=== PATIENT | female | born 1975 | race Caucasian/White ===

== ENCOUNTER 2017-05-08 20:53 | Emergency (ER) | payer OTHER ==
[~2017-05-08 20:53] MED LIST: Z.0.NO CURRENT MEDS
--- NOTE | 2017-05-08 21:55 | PD ---
HPI Chief Complaint: Psychiatric Symptoms Time Seen by Provider: 21:35 Travel History International Travel<30 days: No Contact w/Intl Traveler<30days: No Traveled to known affect area: No History of Present Illness HPI 41-year-old white female presents to emergency department under Vinson act by PD. The patient had been drinking earlier this evening with her significant other. They had gotten into an argument. The patient states that she had gone to sleep and was awoken by PD. According to her significant other she had made suicidal statements. The patient denies this. She states that she was merely drinking alcohol. She denies any drugs. She states that her significant other smokes marijuana and does methamphetamine. He had gotten into a fight because he has not been working. She claims that she has a meeting set up with her mother who is flying in the town in the morning. She states that she was adopted this is a first time she will be seeing her grandmother. She states that she has no intention on hurting herself or hurting anyone. She feels comfortable like to go home. PFS Past Medical History Arthritis: No Asthma: No Autoimmune Disease: No Blood Disorders: No Anxiety: Yes Depression: Yes Heart Rhythm Problems: No Cancer: No Cardiovascular Problems: No High Cholesterol: No Chemotherapy: No Chest Pain: No Congestive Heart Failure: No COPD: No Cerebrovascular Accident: No Diabetes: No Diminished Hearing: No Endocrine: No Gastrointestinal Disorders: No GERD: No Glaucoma: No Genitourinary: Yes ("BLADDER SURGERY") Headaches: No Hepatitis: No Hiatal Hernia: No Hypertension: No Immune Disorder: No Implanted Vascular Access Dvce: No Kidney Stones: No Musculoskeletal: No Neurologic: No Psychiatric: Yes Reproductive: No Respiratory: No Immunizations Current: Yes Migraines: No Myocardial Infarction: No Radiation Therapy: No Renal Failure: No Schizophrenia: Yes (Schizoaffective Disorder - Dx since age 21;) Seizures: No Sickle Cell Disease: No Sleep Apnea: No Thyroid Disease: No Ulcer: No Menopausal: No : 4 Para: 4 Tubal Ligation: Yes (1999) Past Surgical History Abdominal Surgery: Yes (tubal ligation) AICD: No Appendectomy: No Arteriovenous Shunt: No Cardiac Surgery: No Cholecystectomy: No Ear Surgery: No Endocrine Surgery: No Eye Surgery: No Genitourinary Surgery: Yes (BLADDER SURGERY) Gynecologic Surgery: Yes (TUBAL LIGATION 1999) Joint Replacement: No Neurologic Surgery: No Oral Surgery: No Pacemaker: No Thoracic Surgery: No Other Surgery: Yes Social History Alcohol Use: Yes (vodka, will not elaborate as to howmuch or last used) Tobacco Use: Yes (04/13 PPD) Substance Use: Yes (K2) Allergies-Medications (Allergen,Severity, Reaction): Coded Allergies: onion (Unverified Allergy, Severe, Shortness of Breath, 05/08/17) Reported Meds & Prescriptions Reported Meds & Active Scripts Active Reported No Current Meds (Miscellaneous Medication) Misc Review of Systems General / Constitutional: No: Fever Eyes: No: Visual changes HENT: No: Headaches Cardiovascular: No: Chest Pain or Discomfort Respiratory: No: Shortness of Breath Gastrointestinal: No: Abdominal Pain Genitourinary: No: Dysuria Musculoskeletal: No: Pain Skin: No Rash Neurologic: No: Weakness Psychiatric: Positive: Mood Disorder, No: Anxiety, Depression, Suicidal Ideations, Disorder of Thought, Substance Abuse, Homicidal Ideation Endocrine: No: Polydipsia Hematologic/Lymphatic: No: Easy Bruising Physical Exam Narrative GENERAL: Well-nourished, well-developed patient. SKIN: Warm and dry. Old scars from cutting but nothing new. HEAD: Normocephalic and atraumatic. EYES: No scleral icterus. No injection or drainage. ENT: No nasal drainage noted. Mucous membranes pink. Airway patent. NECK: Supple, trachea midline. Moves head freely without obvious discomfort. CARDIOVASCULAR: Regular rate and rhythm without murmurs, gallops, or rubs. RESPIRATORY: Breath sounds equal bilaterally. No accessory muscle use. GASTROINTESTINAL: Abdomen soft, non-tender, nondistended. EXTREMITIES: No cyanosis or edema. BACK: Nontender without obvious deformity. No CVA tenderness. NEURO: Patient is alert and oriented. no sensorimotor deficits. Nonfocal. Normal speech. PSYCH: No delusions. No auditory or visual hallucinations. Data Data Orders Orders Psych Screen (05/08/17 21:44) Drug Screen, Random Urine (05/08/17 21:44) Alcohol (Ethanol) (05/08/17 21:44) MDM Medical Decision Making Medical Screen Exam Complete: Yes Emergency Medical Condition: Yes Medical Record Reviewed: Yes Differential Diagnosis MDM: High Differential diagnoses: Schizophrenia, schizoaffective disorder, bipolar, anxiety, depression, adjustment reaction, mood disorder NOS, ODD, depressive disorder NOS, dementia, dementia with agitation, psychosis NOS, substance induced mood disorder, DMDD, Asperger syndrome, infection,electrolyte abnormality, malingering. Narrative Course Mental health screening discussed with the patient. Psychiatric screen ordered. The patient is intoxicated. She does not meet Vinson act criteria at this time. The patient is not suffering from acute psychiatric problems. She is not a candidate for inpatient management. She is not suicidal homicidal. The patient will be allowed to sober up. In the ER. She'll be reevaluated. It is my impression that she is not acutely suicidal but rather intoxicated. The patient Vinson act will be lifted and she'll be sent home once the patient is sober. This is alcohol intoxication, alcohol induced mood disorder Diagnosis Primary Impression: Alcohol intoxication Qualified Codes: F10.920 - Alcohol use, unspecified with intoxication, uncomplicated Additional Impression: Alcohol-induced mood disorder Patient Instructions: General Instructions Additional Instructions: Rest. Increase fluids. Avoid alcohol. Avoid illegal substances. Follow-up with [facility] for detox. Do not operate a car or any heavy machinery under the influence of alcohol or drugs. Follow-up with a medical doctor this week. Return to the ER for emergencies Med/Other Pt SpecificInfo: No Meds Exist/No RX given Disposition: 01 DISCHARGE HOME Condition: Stable Walter Smith May 08, 2017 21:55
[2017-05-09 02:40] VITALS: BP 110/72; PULSE 100; RESP 20; O2SAT 99
== END 2017-05-09 02:59 | disposition home or self-care (01) ==
LOC: NEPD 20:53
DX: F10.129 Alcohol abuse with intoxication, unspecified (principal); F10.14 Alcohol abuse with alcohol-induced mood disorder; F17.200 Nicotine dependence, unspecified, uncomplicated; Y90.6 Blood alcohol level of 120-199 mg/100 ml
CPT/HCPCS: 80307; 99284